=== PATIENT | male | born 1985 | race Caucasian/White ===

== ENCOUNTER 2016-06-28 22:53 | Emergency (ER) | payer SELFPAY ==
[~2016-06-28] VITALS: Ht 185.4 cm; Wt 95.3 kg
[2016-06-28 23:01] VITALS: BP 144/85
--- NOTE | 2016-06-29 00:51 | NUR ---
TO ER OF2
--- NOTE | 2016-06-29 01:10 | NUR ---
Patient being evaluated by physician.
[2016-06-29] MEDS ORDERED: LEVOFLOXACIN 500 MG TAB PO ONE (01:15)
--- NOTE | 2016-06-29 01:45 | NUR ---
Patient discharged with v/s stable. Written and verbal after care instructions given and explained. Patient alert, oriented and verbalized understanding of instructions. Ambulatory with steady gait. All questions addressed prior to discharge. ID band removed. Patient advised to follow up with PMD. Rx of cipro and motrin given. Patient educated on indication of medication including possible reaction and side effects. Opportunity to ask questions provided and answered.
[2016-06-29 02:54] VITALS: BP 144/85
== END 2016-06-29 01:45 | disposition home or self-care (01) ==
LOC: MED 22:53
DX: S91.331A Puncture wound without foreign body, right foot, initial encounter (principal); L03.115 Cellulitis of right lower limb; R03.0 Elevated blood-pressure reading, without diagnosis of hypertension; W22.8XXA Striking against or struck by other objects, initial encounter; Y93.89 Activity, other specified; Y92.89 Other specified places as the place of occurrence of the external cause; Y99.8 Other external cause status
CPT/HCPCS: 73630; 90471; 90715; 99284